=== PATIENT | male | born 1965 | race Caucasian/White ===

== ENCOUNTER 2018-06-08 09:27 | Emergency (ER) | payer OTHER, SELFPAY ==
[2018-06-08 09:28] VITALS: BP 158/100; PULSE 62; RESP 16; TEMP 37.1; O2SAT 100; BMI 25.0
[2018-06-08 09:41] VITALS: BP 167/103
--- NOTE | 2018-06-08 10:52 | ED.DCSUM_ITS ---
- ER Visit Summary Date of Service: 06/08/18 Chief Complaint: [Nosebleed] History of Present Illness: The patient is a 52 M [presents the emergency department complaint of a nosebleed that started about 7:15 AM. Patient states that the bleeding started spontaneously. Patient denies picking his nose or blowing his nose. Patient denies any injury to his nose. Patient was seen at the urgent care and referred to the emergency department. Patient was noted to be hypertensive at the urgent care and patient does have a history of hypertension however he has been noncompliant with medications. Patient was written a prescription for antihypertensive. Patient does not have a history of nosebleeds.] Physical Examination: [HEENT-PERRLA, EOMI. Cranial nerves II through XII grossly intact. TMs clear. Mucous membranes moist. No adenopathy. Patient noted to have small amount of blood from left nasal vault however no source was seen. Patient had a cotton ball with Suzan solution placed into the left nasal vault and pressure was capped with a nasal clip ?20 minutes. After removing the cottonball again I am not able to visualize the source of the bleeding. Patient did have some clot noted on the posterior oropharynx. When patient stood up to walk he had continued bleeding from the left side of the nose. At this point a nasal Rhino Rocket was placed into the left nasal vault. Patient had air inflated into the Rhino Rocket. Patient was observed in the emergency department and had no further bleeding. Patient was able to ambulate without further bleeding. Patient was started on Augmentin and given a prescription for [place] for pain. Cardiovascular-regular rate and rhythm without murmur or ectopy Lungs-clear to auscultation, chest wall stable without crepitus or subcu emphysema Abdomen-normoactive bowel sounds, soft, nontender, no rebound or rigidity, no peritoneal signs. Extremities-intact ?4, normal range of motion, normal pulses, atraumatic] Test Results: [None indicated] Emergency Department Course and Treatment: [Rhino Rocket placed and patient started on Augmentin and [place]] Treatment Plan: [Patient to follow-up with Dr. Damian Palacios who was on-call for ENT to have the Rhino Rocket removed. Patient to return if persistent bleeding or condition should worsen in any way.] Disposition: [Discharged home in stable condition] Impression: [Epistaxis-resolved] This note was generated with Vari[employer] dictation software. It may contain incorrect words, spelling, and punctuation that were not noted in review of the chart prior to signing ED Disposition - Plan for ED Patient: Chief Complaint: Nosebleed Referrals: Jorje Anderson MD [Primary Care Provider] -
--- NOTE | 2018-06-08 10:52 | ED.DEP ---
ED Disposition - Plan for ED Patient: Chief Complaint: Nosebleed Instructions: Nosebleed Prescriptions: Hydrocodone Bitart/Apap 5-325 [[place] 5MG-325MG] 1 tab PO Q4H PRN PRN 2 Days #10 tab PRN Reason: Pain Referrals: Jorje Anderson MD [Primary Care Provider] - Damian Palacios MD [STAFF PHYSICIAN] - 3-5 Days
[2018-06-08 10:53] VITALS: BP 175/118
[2018-06-08] MEDS: Amox/Clavulanate 875 MG Tablet PO (11:05)
[2018-06-08] MEDS: HYDROcodone Bitartrate/Apap 5/325 Tablet PO (11:05)
--- NOTE | 2018-06-08 11:06 | ED.DEP ---
ED Disposition - Plan for ED Patient: Chief Complaint: Nosebleed Instructions: Nosebleed Prescriptions: Hydrocodone Bitart/Apap 5-325 [[place] 5MG-325MG] 1 tab PO Q4H PRN PRN 2 Days #10 tab PRN Reason: Pain Amox/Clavulanate Tablet [Augmentin Tablet] 875 mg PO Q12H #10 tab Referrals: Damian Palacios MD [STAFF PHYSICIAN] - 3-5 Days Jorje Anderson MD [Primary Care Provider] -
== END 2018-06-08 11:11 | disposition home or self-care (01) ==
PROVIDERS: Emergency Provider Emergency Medicine; Family Provider Internal Medicine; PCP Internal Medicine
DX: R04.0 Epistaxis (principal); I10 Essential (primary) hypertension; Z91.19 Patient's noncompliance with other medical treatment and regimen
CPT/HCPCS: 30905; 99283

== ENCOUNTER → 2018-08-08 08:22 | Outpatient (CLI) | payer OTHER, SELFPAY ==
[2018-08-08 12:24] LABS: Absolute Lymphocyte Count 1.92 X10^3/ul (0.83-4.51); Absolute Neutrophil Count 2.8 X10^3/uL (2.0-7.7); Basophil# 0.11 X10^3/uL; Eosinophil# 0.21 X10^3/uL; Eosinophils% 3.8 % (0-5); Hematocrit 43.7 % (40-54); Hemoglobin 14.2 g/dl (13.0-16.5); Lymphocyte # 1.92 X10^3/ul (4.0); Lymphocyte % 34.7 % (19-41); Mean Corp Hgb Conc 32.5 g/gl (32-36); Mean Corpuscular Hgb 31.4 pg (27.0-32.0); Mean Corpuscular Volume 96.7 fL (80-94); Mean Platelet Vol. 10.1 fl (6.2-12.0); Monocyte# 0.48 X10^3/uL; Monocyte% 8.7 % (0-10); Neutrophil # 2.82 X10^3/uL (2.7-7.7); Neutrophil % 50.8 % (47-70); Platelet Count 223 K/mm3 (150-450); RBC Distribution Width CV 12.9 % (11.6-14.6); RBC Distribution Width SD 45.1 fl (35.1-43.9); Red Blood Count 4.52 M/mm3 (4.6-6.2); White Blood Count 5.5 K/mm3 (4.4-11.0)
[2018-08-08 12:31] LABS: POSITIVE COUNT NO; POSITIVE DIFFERENTIAL NO; POSITIVE MORPHOLOGY NO
[2018-08-08 12:40] LABS: ALB/GLOB Ratio 1.1 RATIO (0.9-2.4); AST(SGOT) 42 U/L (15-37); Alanine Aminotransfer ALT/SGPT 40 U/L (16-61); Albumin, Serum 3.9 g/dL (3.2-5.0); Alkaline Phosphatase 42 U/L (45-117); Anion Gap 9 (5-15); BUN 22 mg/dL (7-18); BUN/Creat Ratio 19.8 RATIO (10-20); Calcium,Total 8.6 mg/dL (8.5-10.1); Chloride 106 mmol/L (98-107); Cholesterol 159 mg/dL (200); Creatinine, Serum 1.11 mg/dL (0.70-1.30); EST Glomerular Filtration Rate 74 mL/min (>60); Est Glom Filt Rate - Afr Amer 90 mL/min (>60); Globulin 3.4 g/dL (2.2-4.2); Glucose 89 mg/dL (74-106); High Density Lipoprotein 50 mg/dL; PSA,Total - Annual Screen 2.21 ng/mL (0.00-4.00); Protein, Total 7.3 g/dL (6.4-8.2); Sodium Level 141 mmol/L (136-145); Triglycerides 52 mg/dL; Very Low Density Lipoprotein 10 mg/dL (5-40)
== END ==
PROVIDERS: Family Provider Family Medicine; PCP Family Medicine; Visit Provider Family Medicine
DX: Z00.01 Encounter for general adult medical examination with abnormal findings (principal); I10 Essential (primary) hypertension; Z12.5 Encounter for screening for malignant neoplasm of prostate
CPT/HCPCS: 36415; 80053; 80061; 84153; 85025; G0103

== ENCOUNTER → 2018-08-15 06:58 | Outpatient (CLI) | payer OTHER, SELFPAY ==
--- NOTE | 2018-08-15 15:46 | PFTCOMP ---
COMPLETE PULMONARY FUNCTION TEST INTERPRETATION Brief HPI: Patient is a 53 year old male, currently under the care of Dr. Godoy, who presents to [facility] for complete pulmonary function tests secondary to diagnosis of recurrent URI. Respiratory therapist reports good effort and reproducible results. Interpretation: Forced expiration spirometry shows no large airways obstructive ventilatory defect with an FEV1 of 97% predicted. There is no significant bronchodilator response by strict ATS criteria. Spirograms are of good quality and plateau slowly, indicating slowly emptying areas of the lungs. The respiratory flow volume loop shows decreased expiratory flow rates at high lung volumes consistent with small airways obstruction. Lung volumes by body plethysmography show a normal total lung capacity at 6.28 L, 92% predicted. All other lung volumes are within normal limits. Diffusion capacity by carbon monoxide is elevated at 166% predicted. The airway resistance is normal. No previous pulmonary function tests were available for review. Impression: These pulmonary function tests are grossly within normal limits. Consider bronchoprovocation study if asthma is a consideration.
--- NOTE | 2018-08-15 15:52 | PFTCOMP_ITS ---
COMPLETE PULMONARY FUNCTION TEST INTERPRETATION Brief HPI: Patient is a 53 year old male, currently under the care of Dr. Godoy, who presents to [facility] for complete pulmonary function tests secondary to diagnosis of recurrent URI. Respiratory therapist reports good effort and reproducible results. Interpretation: Forced expiration spirometry shows no large airways obstructive ventilatory defect with an FEV1 of 97% predicted. There is no significant bronchodilator response by strict ATS criteria. Spirograms are of good quality and plateau slowly, indicating slowly emptying areas of the lungs. The respiratory flow volume loop shows decreased expiratory flow rates at high lung volumes consistent with small airways obstruction. Lung volumes by body plethysmography show a normal total lung capacity at 6.28 L , 92% predicted. All other lung volumes are within normal limits. Diffusion capacity by carbon monoxide is elevated at 166% predicted. The airway resistance is normal. No previous pulmonary function tests were available for review. Impression: These pulmonary function tests are grossly within normal limits. Consider bronchoprovocation study if asthma is a consideration.
== END ==
PROVIDERS: Family Provider Family Medicine; PCP Family Medicine; Visit Provider Family Medicine
DX: J06.9 Acute upper respiratory infection, unspecified (principal)
CPT/HCPCS: 94060; 94726; 94729

== ENCOUNTER → 2023-12-11 | Outpatient (CLI) | payer OTHER, SELFPAY ==
--- OUTSIDE RECORDS SUMMARY | 2023-12-11 17:08 | XMS RPT_ITS | CCD ---
Author Name Unknown Address [address] [place] [address] Organization [facility] Care Team Providers Care Trader Fixed Income Name Role Phone CR NEGRO Unavailable Unavailable CR NEGRO Unavailable Unavailable ELIEZER MELENDEZ, MILLY Primary Care Physician ELIEZER MELENDEZ, MILLY Attending Shira MELENDEZ, MILLY Primary Care Shira MELENDEZ, MILLY Attending Shira MELENDEZ, MILLY Primary Care Shira lundy Medications Current Medications Medication Drug Class(es) Dates Sig (Normalized) Sig (Original) amLODIPine 10 mg oral tablet (2 sources) Dihydropyridine Calcium Channel Esther Start: 08-14-20 End: 08-09-20 amLODIPine 10 mg oral tablet Dose : 10 mg = 1 tab(s), Oral, qDay, # 90 tab(s), 3 Refill(s), Pharmacy: [facility] ([facility]), 180.3, cm, 08/22/21 13:37:00 EDT, Height, kg, 08/22/21 13:37:00 EDT, Dosing Weight Start Date: 08/14/22 Stop Date: 08/09/23 Status: Ordered hydroCHLOROthiazide 25 mg oral tablet (1 source) Thiazide Diuretic Start: 08-14-20 hydroCHLOROthiazide 25 mg oral tablet Dose : 25 mg = 1 tab(s), Oral, qDay, # 90 tab(s), 0 Refill(s), Pharmacy: [facility] ([facility]), 180.3, cm, 08/22/21 13:37:00 EDT, Height, kg, 08/22/21 13:37:00 EDT, Dosing Weight Start Date: 08/14/22 Status: Ordered lisinopril 5 mg oral tablet (1 source) Angiotensin Converting Enzyme Inhibitor Start: 12-04-19 End: 06-02-20 lisinopril 5 mg oral tablet Dose : 5 mg = 1 tab(s), Oral, qDay, # 90 tab(s), 1 Refill(s), Pharmacy: [facility]/pharmacy #[id number], 178, cm, 08/22/22 8:28:00 EDT, Height, kg, 08/22/22 8:28:00 EDT, Dosing Weight Start Date: 12/04/22 Stop Date: 06/02/23 Status: Ordered Problems Problem Classification Problem Date Documented Da te Episodic/Chronic Essential hypertension (4 sources) Hypertensive disorder; Translations: [Essential (primary) hypertension] Onset: 11-30-2022 09-24-2020 Chronic Unclassified (2 sources) Patient encounter status 07-12-2021 Results Test Name Value Interpretation Reference Range Facil ity Encounters Encounter Date Encounter Type Care Provider Facility Start: 11-30-2022 End: 12-05-2022 ambulatory MILLY MARTINS APRN-PARVIN Facility:B Start: 11-30-2022 End: 12-05-2022 Encounter for general adult medical examination without abnormal findings MILLY MARTINS APRN-PARVIN Facility:B Start: 11-30-2022 End: 12-04-2022 Outreach Lab MILLY MELENDEZ [facility] Start: 08-14-2022 End: 08-15-2022 ambulatory MILLY MARTINS APRN-PARVIN Facility:B Start: 08-14-2022 End: 08-14-2022 Patient encounter procedure MILLY MARTINS APRN-PARVIN [facility] Start: 06-08-2018 End: 06-10-2018 Patient encounter procedure CR NEGRO [facility] Start: 02-13-2018 Encounter for genera l adult medical examination without abnormal findings CR NEGRO [facility] Start: 01-08-2018 End: 01-10-2018 Patient encounter procedure CR Jimenez MARKY [facility] Procedures Date Procedure Procedure Detail Performing Clinician Start: 07-25-2021 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 Start: 11-26-2010 Back structure, excl uding neck (body structure) MILLY MARTINS [employer] Payers Date Payer Category Payer Unknown [id number] 1965 Unknown [id number] 1965 Unknown [id number] Social History Date Type Detail Facility Start: 09-24-2020 Tobacco smoking status Never s moked tobacco (finding) [facility] Sex Assigned At Sex [facility] Evaluation + Plan note Note Date & Type Note Facility Evaluation + Plan note Future Appointments Appointment Date:08/22/2022 08:30:00 AM Scheduled Provider:MILLY MARTINS Location:[facility] Appointment Type:PC Wellness Annual w/Labs [facility] Hospital course Narrative Note Date & Type Note Facility Hospital course Narrative No data available for this section [facility] Discharge instructions Note Date & Type Note Facility Hospital Discharge instructions No data available for this section [facility] Progress note Note Date & Type Note Facility Progress note No data available for this section [facility] Summary Purpose Family History No Family History Records FoundNo Family History Records Found Advance Directives No Advanced Directives Records FoundNo Advanced Directives Records Found Additional Source Comments (unrecognized sect ion and content) No Status Records FoundNo Status Records Found INFORMATION SOURCE (unrecogn ized section and content) DATE CREATED AUTHOR AUTHOR'S ORGANIZ ATION 12/05/2022 [facility] ([place]) Care Team (unrecognized sect ion and content) Care Team Personnel Name: MILLY MARTINS Position: P4 Advanced Practice Nurse Med Service: Active Provider Member Role: Primary Care Physician Address: Address: [address] [place] [address] Care Team Personnel Name: TINO MARTINSSIE AL Position: P4 Advanced Practice Nurse Member Role: Primary Care Physician Address: Address: [address] [place] [address] Care Team Related Persons Name: RYLEY ORTEGA Address: [address] [phone] Address: [address] [phone] FOR RECORDS PERTAINING TO PATIENTS WHO ARE OR HAVE BEEN ENROLLED IN A CHEMICAL DEPENDENCY/SUBSTANCEABUSE PROGRAM, SOME INFORMATION MAY BE OMITTED. This clinical summary was aggregated from multiple sources. Caution should be exercised in using it in the provision of clinical care. This summary normalizes information from multiple sources, and as a consequence, information in this document may materially change the coding, format and clinical context of patient data. In addition, data may be omitted in some cases. CLINICAL DECISIONS SHOULD BE BASED ON THE PRIMARY CLINICAL RECORDS. [facility]. provides no warranty or guarantee of the accuracy or completeness of information in this document.
[2023-12-11 17:24] LABS: Absolute Lymphocyte Count 2.46 X10^3/uL (0.83-4.51); Absolute Neutrophil Count 4.7 X10^3/uL (2.0-7.7); Basophil# 0.13 X10^3/uL; Basophil% 1.6 % (0-1); Eosinophil# 0.13 X10^3/uL; Eosinophils% 1.6 % (0-5); Hematocrit 44.4 % (40-54); Hemoglobin 14.3 g/dL (13.0-16.5); Lymphocyte # 2.46 X10^3/ul (0.83-4.51); Lymphocyte % 30.7 % (19-41); Mean Corp Hgb Conc 32.2 g/dL (32-36); Mean Corpuscular Hgb 30.8 pg (27.0-32.0); Mean Corpuscular Volume 95.5 fL (80-94); Mean Platelet Vol. 9.5 fl (6.2-12.0); Monocyte# 0.54 X10^3/uL; Monocyte% 6.7 % (0-10); NRBC Flagged by Analyzer 0 % (0-5); Neutrophil # 4.73 X10^3/uL (2.7-7.7); Neutrophil % 59.2 % (47-70); Platelet Count 318 K/mm3 (150-450); RBC Distribution Width CV 12.7 % (11.6-14.6); RBC Distribution Width SD 44.2 fl (35.1-43.9); Red Blood Count 4.65 M/mm3 (4.6-6.2)
[2023-12-11 17:53] LABS: ALB/GLOB Ratio 1.1 RATIO (0.9-2.4); AST(SGOT) 27 U/L (15-37); Alanine Aminotransfer ALT/SGPT 36 U/L (16-61); Albumin, Serum 3.9 g/dL (3.2-5.0); Alkaline Phosphatase 56 U/L (45-117); Anion Gap 7 (5-15); BUN 30 mg/dL (7-18); BUN/Creat Ratio 27.5 RATIO (10-20); Calcium,Total 9.1 mg/dL (8.5-10.1); Chloride 107 mmol/L (98-107); Cholesterol 189 mg/dL (200); Creatinine, Serum 1.09 mg/dL (0.70-1.30); EST Glomerular Filtration Rate 74 mL/min (>60); Est Glom Filt Rate - Afr Amer 90 mL/min (>60); Globulin 3.6 g/dL (2.2-4.2); Glucose 75 mg/dL (74-106); High Density Lipoprotein 52 mg/dL; PSA,Total - Annual Screen 4.29 ng/mL (0.00-4.00); Potassium 4.1 mmol/L (3.5-5.1); Protein, Total 7.5 g/dL (6.4-8.2); Sodium Level 138 mmol/L (136-145); Triglycerides 133 mg/dL; Very Low Density Lipoprotein 27 mg/dL (5-40)
== END | disposition home or self-care (01) ==
LOC: BFHLAB 15:15
PROVIDERS: PCP Family Medicine; Visit Provider Family Medicine
DX: Z00.00 Encounter for general adult medical examination without abnormal findings (principal); Z12.5 Encounter for screening for malignant neoplasm of prostate
CPT/HCPCS: 36415; 80053; 80061; 84153; 85025; G0103

== ENCOUNTER → 2023-12-28 | Outpatient (CLI) | payer OTHER, SELFPAY ==
--- OUTSIDE RECORDS SUMMARY | 2023-12-28 07:55 | XMS RPT_ITS | CCD ---
Author Name Unknown Address [address] [place] [address] Organization [facility] Care Team Providers Care Bread And Pastry Baker Name Role Phone CR NEGRO Unavailable Unavailable [...] qDay, # 90 tab(s), 3 Refill(s), Pharmacy: [facility] ([facility]), 180.3, cm, 08/22/21 13:37:00 EDT, Height, kg, 08/22/21 13:37:00 EDT, Dosing Weight Start Date: 08/14/22 Stop Date: 08/09/23 Status: Ordered hydroCHLOROthiazide 25 mg oral tablet (1 source) Thiazide Diuretic Start: 08-14-20 hydroCHLOROthiazide 25 mg oral tablet Dose : 25 mg = 1 tab(s), Oral, qDay, # 90 tab(s), 0 Refill(s), Pharmacy: [facility] ([facility]), 180.3, cm, 08/22/21 13:37:00 EDT, Height, kg, 08/22/21 13:37:00 EDT, Dosing Weight Start Date: 08/14/22 Status: Ordered lisinopril 5 mg oral tablet (1 source) Angiotensin Converting Enzyme Inhibitor Start: 12-04-19 End: 06-02-20 lisinopril 5 mg oral tablet Dose : 5 mg = 1 tab(s), Oral, qDay, # 90 tab(s), 1 Refill(s), Pharmacy: [facility]/pharmacy #[id number], 178, cm, 08/22/22 8:28:00 EDT, Height, kg, [...] 11-30-2022 End: 12-04-2022 Outreach Lab MILLY MELENDEZ [facility] Start: 08-14-2022 End: 08-15-2022 ambulatory MILLY MARTINS APRN-PARVIN Facility:B Start: 08-14-2022 End: 08-14-2022 Patient encounter procedure MILLY MARTINS APRN-PARVIN [facility] Start: 06-08-2018 End: 06-10-2018 Patient encounter procedure CR NEGRO [facility] Start: 02-13-2018 Encounter for genera l adult medical examination without abnormal findings CR NEGRO [facility] Start: 01-08-2018 End: 01-10-2018 Patient encounter procedure CR Jimenez MARKY [facility] Procedures Date Procedure Procedure Detail Performing Clinician Start: 07-25-2021 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: 11-26-2010 Back structure, excl uding neck (body structure) MILLY MARTINS 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 Payers Date Payer Category Payer Unknown [id number] 1965 Unknown [id number] 1965 Unknown [id number] Social History Date Type Detail Facility Start: 09-24-2020 Tobacco smoking status Never s moked tobacco (finding) [facility] Sex Assigned At Sex [facility] Evaluation + Plan note Note Date & Type Note Facility Evaluation + Plan note Future Appointments Appointment Date:08/22/2022 08:30:00 AM Scheduled Provider:MILLY MARTINS Location:[facility] Appointment Type:PC Wellness Annual w/Labs [facility] Hospital course Narrative Note Date & Type Note Facility Hospital course Narrative No data available for this section [facility] Hospital Discharge instructions Note Date & Type Note Facility Hospital Discharge instructions No data available for this section [facility] Progress note Note Date & Type Note Facility Progress note No data available for this section [facility] Summary Purpose Family History No Family History Records FoundNo Family History Records Found Advance Directives No Advanced Directives Records FoundNo Advanced Directives Records Found Additional Source Comments (unrecognized sect ion and content) No Status Records FoundNo Status Records Found INFORMATION SOURCE (unrecogn ized section and content) DATE CREATED AUTHOR AUTHOR'S ORGANIZ ATION 12/05/2022 [facility] ([place]) Care Team (unrecognized sect ion and content) Care Team Personnel Name: MILLY MARTINS Position: P4 Advanced Practice Nurse Med Service: Active Provider Member Role: Primary Care Physician Address: Address: [address] [place] [address] Care Team Personnel Name: TINO MARTINSSIE AL Position: P4 Advanced Practice Nurse Member Role: Primary Care Physician Address: Address: [address] [place] [address] Care Team Related Persons Name: RYLEY ORTEGA Address: [address] [phone] Address: [address] [phone] FOR RECORDS PERTAINING TO PATIENTS WHO ARE [...] BE BASED ON THE PRIMARY CLINICAL RECORDS. [facility] [facility]. provides no warranty or guarantee of the accuracy or completeness of information in this document.
--- NOTE | 2023-12-28 08:12 | CT_ITS ---
STUDY: CT ABDOMEN WITH CONTRAST REASON FOR EXAM: Male, 58 years old. LUQ PAIN, SUSPECTED HERNIA RADIATION DOSAGE (If Supplied By Facility): CTDIvol = ( 13.40 ) mGy, DLP = ( 381.21 ) mGycm TECHNIQUE: Transaxial images were obtained post I.V. administration of IV 100mL Isovue-370, and oral contrast. Sagittal and coronal images were reconstructed. Individualized dose optimization techniques were used for this CT. COMPARISON: None. FINDINGS: The visualized lung bases are unremarkable. The visualized portions of the heart are within normal limits. Normal liver. Normal gallbladder and extrahepatic biliary system. There are multiple benign calcified granulomata of the spleen. Normal pancreas. Normal bilateral adrenal glands. Normal right kidney. Normal left kidney. There is a small hiatal hernia. Normal small intestine. Large amount of fecal material is seen in the colon. Small umbilical hernia containing fat. The appendix is visualized and appears normal. Normal abdominal aorta. Normal inferior vena cava. Normal retroperitoneum. There is a small umbilical hernia containing fat. There are mild degenerative changes of the visualized lumbar spine. CT/Abdomen WITH IV Contrast IMPRESSION: Calcified splenic granulomas. Small hiatal hernia. Large amount of fecal material is seen in the colon. Electronically Signed: Billy Henderson MD at 9:16 EST ,
== END | disposition home or self-care (01) ==
LOC: CT 07:46
PROVIDERS: PCP Family Medicine; Referring Provider Family Medicine; Visit Provider Family Medicine
DX: R10.12 Left upper quadrant pain (principal)
CPT/HCPCS: 74160; Q9967